=== PATIENT | male | born 1995 | race Caucasian/White ===

== ENCOUNTER 2019-01-26 18:51 | Emergency (ER) | payer OTHER ==
[~2019-01-26] VITALS: Ht 182.9 cm; Wt 122.5 kg
== END 2019-01-26 20:44 | disposition home or self-care (01) ==
LOC: ER 18:51
DX: S90.572A Other superficial bite of ankle, left ankle, initial encounter (principal); W57.XXXA Bitten or stung by nonvenomous insect and other nonvenomous arthropods, initial encounter; Y93.89 Activity, other specified; Y92.89 Other specified places as the place of occurrence of the external cause; Y99.8 Other external cause status